=== PATIENT | female | born 1965 | race Caucasian/White ===

== ENCOUNTER 2016-12-12 09:03 | Emergency (ER) | payer BC ==
[~2016-12-12] VITALS: Ht 165.1 cm; Wt 56.0 kg
[~2016-12-12 09:03] MED LIST: ADVIN25050 INH; FLX5 PO; HYDR2TAB3 PO; MRLP17 PO
[2016-12-12 09:07] VITALS: TEMP 36.6; Ht 165.1 cm; Wt 56.0 kg
[2016-12-12] MEDS ORDERED: FLUT0.15 NAE (10:01)
[2016-12-12] MEDS ORDERED: CALC1TAB9 PO (10:01)
[2016-12-12] MEDS ORDERED: MULTTAB58 PO (10:01)
[2016-12-12] MEDS ORDERED: MAGN400T6 PO (10:01)
[2016-12-12] MEDS ORDERED: CHOL1000 PO (10:01)
--- NOTE | 2016-12-12 10:01 | DIAGNOSTIC IMAGING REPORT ---
LEFT FOOT MIN 3 VIEWS ROUTINE CLINICAL HISTORY: L foot pain TRAUMA COMPARISON: None. DISCUSSION: There are age-indeterminate linear avulsion fractures arising the dorsal surface of the talus and navicular. No metatarsal fractures or dislocations are visualized. IMPRESSION: Age-indeterminate linear avulsion fragments arising from the dorsal aspect of the talus and navicular Electronically signed by: Remy Paniagua M.D. 12/12/2016 9:59 AM Dictated Date/Time: 12/12/2016 9:58 AM
[2016-12-12] MEDS ORDERED: ACETAMINOPHEN 500 MG TAB PO STA (10:34)
[2016-12-12] MEDS ORDERED: TRAM-10 PO (10:50)
[2016-12-12 11:15] VITALS: BP 113/74; PULSE 75; O2SAT 99
--- NOTE | 2016-12-12 15:21 | EMERGENCY ROOM VISIT NOTE ---
History First contact with patient: 09:18 Chief Complaint: FOOT PAIN Stated Complaint: FALL, LEFT FOOT INJURY History of Present Illness The patient is a 51 year old female who presents to the Emergency Room with complaints of an injury to her left foot while cleaning and walking down stairs. She reports that her foot slipped and twisted. She complains of generalized pain across the top of her foot and ankle. She denies any pain extending into the leg or knee region she denies any paresthesias or numbness of the left foot or toes, and rates her pain an 8 out of 10 with weightbearing. She denies any prior history of left foot injuries. Review of Systems 10 system review was performed and was negative except for pertinent positives and negatives as indicated in history of present illness Past Medical/Surgical History Medical Problems: (1) Abdominal pain (2) Asthma (3) GERD (gastroesophageal reflux disease) (4) Hiatal hernia Surgical Problems: (1) H/O colonoscopy (2) History of cholecystectomy (3) History of esophagogastroduodenoscopy (4) History of hysterectomy (5) S/P TEE-BSO (total abdominal hysterectomy and bilateral salpingo- oophorectomy) Family History Diabetes mellitus FHx: gallbladder disease Heart disease Hypertension Social History Smoking Status: Never Smoker Alcohol Use: occasionally Drug Use: none Marital Status: Housing Status: lives with significant other Occupation Status: employed Current/Historical Medications Scheduled Calcium Citrate-Vitamin D (Citracal + D3 Maximum), 1 TAB PO DAILY Cholecalciferol (Vitamin D3), 1 TAB PO DAILY Fluticasone Propionate (Nasal) (Flonase Allergy Relief), 1 SPRAY DAGOBERTO DAILY Magnesium Oxide (Mag-Ox), 400 MG PO DAILY Multiple Vitamin (Multivitamin), 1 TAB PO DAILY Scheduled PRN Tramadol (Ultram), 1-2 TAB PO Q4H PRN for Pain Allergies Coded Allergies: Sulfa Antibiotics (Verified Allergy, Unknown, ., 12/12/16) Diclofenac (Verified Adverse Reaction, Mild, Nausea, 12/12/16) Rabeprazole (Verified Adverse Reaction, Mild, Nausea., 12/12/16) Physical Exam Vital Signs Date Time Temp Pulse Resp B/P Pulse Ox O2 Delivery O2 Flow Rate FiO2 12/12/16 11:15 75 18 113/74 99 12/12/16 10:06 77 16 115/76 96 Room Air 12/12/16 09:07 36.6 79 18 129/80 97 Room Air Physical Exam CONSTITUTIONAL: Healthy and well nourished. Alert and oriented X 3 with positive affect. She does not appear in any acute distress. HEENT: Normocephalic, atraumatic. Pupils equal, round and reactive. NECK: Full active range of motion without discomfort. MUSCULOSKELETAL: Examination of the left foot does not show any obvious soft tissue edema or ecchymosis. She is generally tender across the dorsum of the foot. Minimal tenderness through the ankle region. No focal tenderness through the calcaneus or Achilles tendon. Pedal pulses are intact. INTEGUMENTARY: No rash or other significant dermatologic conditions noted. NEUROLOGIC: Left foot and toes are sensory intact. Medical Decision & Procedures ER Provider Diagnostic Interpretation: My interpretation of left foot injuries shows avulsion fractures of the dorsal talus and navicular. Radiologist report is as follows: LEFT FOOT MIN 3 VIEWS ROUTINE CLINICAL HISTORY: L foot pain TRAUMA COMPARISON: None. DISCUSSION: There are age-indeterminate linear avulsion fractures arising the dorsal surface of the talus and navicular. No metatarsal fractures or dislocations are visualized. IMPRESSION: Age-indeterminate linear avulsion fragments arising from the dorsal aspect of the talus and navicular Medications Administered Medications (Trade) Dose Ordered Sig/Day Route Start Time Stop Time Status Last Admin Dose Admin Acetaminophen (Tylenol Tab) 1,000 mg NOW STAT PO 12/12/16 10:34 12/12/16 10:40 DC 12/12/16 10:50 1,000 MG ED Course Patient history and physical exam were performed. Nurse's notes were reviewed. The patient refused any analgesics on initial exam. X-rays of the left foot shows avulsion injuries of the dorsal talus and navicular. An Ortho-Glass posterior splint and crutches were applied. The patient was instructed to intermittently apply ice and elevate the foot for swelling and pain. She was encouraged to alternate ibuprofen and Tylenol as needed for pain. The patient was provided a prescription for Ultram as needed for worse pain. The patient was instructed to follow-up with orthopedics for further reevaluation and management. The patient was happy with plan of care, voiced understanding of all discharge instructions, and rated her pain a 5 out of 10 at the time of discharge. Medical Decision Impression Primary Impression: Avulsion fracture of left talus Additional Impression: Avulsion fracture of navicular bone of left foot Departure Information Prescriptions Tramadol (Ultram) 50 Mg Tab 1-2 TAB PO Q4H Y for Pain, #20 TAB For Initial Treatment Prov: Abraham Piper PA 12/12/16 Referrals Alen Garcia M.D. (PCP) Forms HOME CARE DOCUMENTATION FORM, IMPORTANT VISIT INFORMATION Patient Instructions [facility] Problem Qualifiers Primary Impression: Avulsion fracture of left talus Encounter type: initial encounter Fracture type: closed Qualified Codes: S92.152A - Displaced avulsion fracture (chip fracture) of left talus, initial encounter for closed fracture Additional Impression: Avulsion fracture of navicular bone of left foot Encounter type: initial encounter Fracture type: closed Qualified Codes: S92.252A - Displaced fracture of navicular [scaphoid] of left foot, initial encounter for closed fracture
== END 2016-12-12 11:20 | disposition home or self-care (01) ==
LOC: C.EDB 09:05
DX: S92.152A Displaced avulsion fracture (chip fracture) of left talus, initial encounter for closed fracture (principal); S92.252A Displaced fracture of navicular [scaphoid] of left foot, initial encounter for closed fracture; Y93.89 Activity, other specified; X50.0XXA Overexertion from strenuous movement or load, initial encounter; J45.909 Unspecified asthma, uncomplicated; K21.9 Gastro-esophageal reflux disease without esophagitis; Z90.49 Acquired absence of other specified parts of digestive tract; Z90.710 Acquired absence of both cervix and uterus; Z83.3 Family history of diabetes mellitus; Z82.49 Family history of ischemic heart disease and other diseases of the circulatory system; Z79.899 Other long term (current) drug therapy

== ENCOUNTER → 2017-01-16 | Outpatient (CLI) | payer BC ==
[~2017-01-16] MED LIST changes: -ADVIN25050 INH; +CALC1TAB9 PO; +CHOL1000 PO; +FLUT0.15 NAE; -FLX5 PO; -HYDR2TAB3 PO; +MAGN400T6 PO; -MRLP17 PO; +MULTTAB58 PO; +TRAM-10 PO
[2017-01-16 18:04] LABS: BLOOD UREA NITROGEN 20 mg/dl (7-18); CALCIUM 9.4 mg/dl (8.5-10.1); CARBON DIOXIDE 31 mmol/L (21-32); CHLORIDE 104 mmol/L (98-107); CREATININE 0.85 mg/dl (0.60-1.20); GLUCOSE 89 mg/dl (70-99); POTASSIUM 3.9 mmol/L (3.5-5.1); SODIUM 142 mmol/L (136-145)
== END | disposition home or self-care (01) ==
LOC: C.LABPVFM 15:30
PROVIDERS: ATTEND Family Medicine
DX: D68.51 Activated protein C resistance (principal); M81.0 Age-related osteoporosis without current pathological fracture

== ENCOUNTER → 2017-08-20 | Outpatient (CLI) | payer BC ==
[~2017-08-20] MED LIST changes: -TRAM-10 PO
[2017-08-20 18:35] LABS: ALT/SGPT 25 U/L (12-78); AST/SGOT 16 U/L (15-37); BLOOD UREA NITROGEN 22 mg/dl (7-18); BUN/CREATININE RATIO 26.6 (10-20); CALCIUM 9.1 mg/dl (8.5-10.1); CARBON DIOXIDE 28 mmol/L (21-32); CHLORIDE 107 mmol/L (98-107); CREATININE 0.83 mg/dl (0.60-1.20); GLUCOSE 85 mg/dl (70-99); POTASSIUM 3.9 mmol/L (3.5-5.1); SODIUM 140 mmol/L (136-145)
[2017-08-20 18:38] LABS: ALB/GLOB RATIO 1.2 (0.9-2); ALKALINE PHOSPHATASE 66 U/L (45-117)
== END | disposition home or self-care (01) ==
LOC: C.LABPVFM 14:44
PROVIDERS: ATTEND Family Medicine
DX: Z79.899 Other long term (current) drug therapy (principal)

== ENCOUNTER → 2017-09-16 | Outpatient (CLI) | payer BC ==
--- NOTE | 2017-09-17 07:49 | MAMMOGRAPHY REPORT ---
BILATERAL DIGITAL SCREENING MAMMOGRAM TOMOSYNTHESIS WITH CAD: 09/16/2017 CLINICAL HISTORY: Routine screening. Patient has no complaints. TECHNIQUE: Breast tomosynthesis in addition to standard 2D mammography was performed. Current study was also evaluated with a Computer Aided Detection (CAD) system. COMPARISON: Comparison is made to exams dated: 09/07/2016 mammogram, 09/06/2015 mammogram, 04/30/2014 mammogram, 11/12/2012 mammogram, 10/26/2011 mammogram, and 10/24/2010 mammogram - [facility]. BREAST COMPOSITION: There are scattered areas of fibroglandular density in both breasts. FINDINGS: The parenchymal pattern is unchanged. No developing mass, architectural distortion or clus ter of suspicious microcalcifications is seen in either breast. IMPRESSION: ACR BI-RADS CATEGORY 2: BENIGN There is no mammographic evidence of malignancy. A 1 year screening mammogram is recommended. The pa tient will receive written notification of the results. Approximately 10% of breast cancers are not detected with mammography. A negative mammographic report should not delay biopsy if a clinically suggestive mass is present. Edel Payne M.D. ay/:09/16/2017 16:18:31 [employer] Work[employer]: Bre WESTFALL(Emelina)(M), [facility] letter sent: Normal 1/2 BI-RADS Code: ACR BI-RADS Category 2: Benign
== END | disposition home or self-care (01) ==
LOC: C.MAMM 15:56
PROVIDERS: ATTEND Family Medicine
DX: Z12.31 Encounter for screening mammogram for malignant neoplasm of breast (principal)

== ENCOUNTER → 2018-01-08 | Outpatient (CLI) | payer BC ==
[2018-01-08 17:16] LABS: BASO % 0.6 %; BASO ABS # 0.04 K/uL (0-0.2); EOS % 1.1 %; EOS ABS # 0.07 K/uL (0-0.5); HEMOGLOBIN 14.7 g/dL (12.0-16.0); LYMPH % 29.5 %; LYMPH ABS # 1.93 K/uL (1.2-3.4); MEAN CELL VOLUME 87.6 fL (80-100); MEAN CORPUSCULAR HEMOGLOBIN 29.9 pg (25-34); MEAN CORPUSCULAR HGB CONC 34.2 g/dl (32-36); MEAN PLATELET VOLUME 10.7 fL (7.4-10.4); MONO % 8.7 %; MONO ABS # 0.57 K/uL (0.11-0.59); NEUT % 60.1 %; NEUT ABS # 3.93 K/uL (1.4-6.5); PLATELET COUNT 262 K/uL (130-400); RED CELL DISTRIBUTION WIDTH CV 13.9 % (11.5-14.5); RED CELL DISTRIBUTION WIDTH SD 44.6 fL (36.4-46.3); WHITE BLOOD COUNT 6.54 K/uL (4.8-10.8)
[2018-01-08 17:34] LABS: ALBUMIN 4.3 gm/dl (3.4-5.0); ALT/SGPT 30 U/L (12-78); AST/SGOT 23 U/L (15-37); BLOOD UREA NITROGEN 21 mg/dl (7-18); CARBON DIOXIDE 29 mmol/L (21-32); CHOLESTEROL 166 mg/dl (0-200); CREATININE 0.86 mg/dl (0.60-1.20); GLUCOSE 92 mg/dl (70-99); POTASSIUM 4.4 mmol/L (3.5-5.1); SODIUM 139 mmol/L (136-145)
[2018-01-08 17:45] LABS: ALKALINE PHOSPHATASE 109 U/L (45-117); LDL CHOLESTEROL CALCULATED 66 mg/dl; TOTAL PROTEIN 8.1 gm/dl (6.4-8.2)
== END | disposition home or self-care (01) ==
LOC: C.LABPVFM 13:32
PROVIDERS: ATTEND Family Medicine
DX: D68.51 Activated protein C resistance (principal)